=== PATIENT | female | born 1975 | race Caucasian/White ===

== ENCOUNTER 2020-05-29 16:44 | Inpatient (IN) | payer OTHER ==
[~2020-05-29] VITALS: Ht 162.5 cm; Wt 60.8 kg
[2020-05-29 16:59] VITALS: BP 125/84
[2020-05-29 17:44] LABS: BASO % 0.4 % (0.0-1.0); EOS # 0.1 10*3/uL (0.0-0.4); EOS % 1.8 % (1.0-4.0); HEMATOCRIT 46.8 % (37.0-47.0); LYMPH # 3.1 10*3/uL (1.3-4.4); LYMPH % 43.2 % (27.0-41.0); MEAN CELL VOLUME 96.9 fl (81.0-99.0); MEAN CORPUSCULAR HGB 31.5 pg (27.0-31.0); MEAN CORPUSCULAR HGB CONC 32.5 g/dl (33.0-37.0); MEAN PLATELET VOLUME 9.2 fl (9.6-12.3); MONO # 0.6 10*3/uL (0.1-1.0); NEUT # 3.4 10*3/uL (2.3-7.9); NEUT % 46.5 % (47.0-73.0); PLATELET COUNT AUTOMATED 289 10*3/uL (130-400); RED BLOOD COUNT 4.83 10*6/uL (4.10-5.10); RED CELL DISTRI WIDTH 13.9 % (0-14.5); WHITE BLOOD COUNT 7.2 10*3/uL (4.8-10.8)
[2020-05-29 17:55] LABS: ACT PARTIAL THROMBO TIME 27.9 SECONDS (20.0-32.1); INTERNATIONAL NORM RATIO 1.1 (2.0-3.5)
[2020-05-29 18:05] LABS: ALBUMIN 3.2 gm/dl (3.1-4.5); ALKALINE PHOSPHATASE 127 U/L (45-117); BUN 9 mg/dl (7-24); CHLORIDE 105 mmol/L (98-107); CREATININE 0.78 mg/dL (0.55-1.02); POTASSIUM 4.4 mmol/L (3.5-5.1); SGOT/AST 56 IU/L (3-35); SGPT/ALT 98 U/L (12-78); SODIUM 139 mmol/L (136-145); TOTAL PROTEIN 7.3 gm/dL (6.4-8.2)
[2020-05-29 18:14] LABS: BILIRUBIN Negative (Negative); BLOOD Negative (Negative); CLARITY Cloudy (Clear); COLOR Yellow (Yellow); GLUCOSE Negative (Negative); KETONE Trace (Negative); LEUKO ESTERASE 3+ (Negative); NITRITE Positive (Negative)
[2020-05-29 18:15] LABS: BETA-HCG, QUANT < 1.0 mIU/mL (1-3); ETHYL ALCOHOL < 3.0 mg/dl (<3)
[2020-05-29 18:28] LABS: BACTERIA 4+; MUCOUS TRACE; RBC 0-2 rbc/hpf (0-2); WBC TNTC wbc/hpf (0-5)
[2020-05-29 18:29] LABS: URINE AMPHETAMINES < 1000 (1000ng/ml); URINE BARBITURATES < 200 (200ng/ml); URINE BENZODIAZEPINES > 200 (200ng/ml); URINE CANNABINOIDS (THC) > 50 (50ng/ml); URINE COCAINE > 300 (300ng/ml); URINE METHADONE < 300 (300ng/ml); URINE OPIATES > 300 (300ng/ml)
[2020-05-29 18:30] LABS: URINE PHENCYCLIDINE < 25 (25ng/ml)
--- NOTE | 2020-05-29 20:10 | NUR ---
SPOKE WITH LAMBERTO ROACH FOR PATIENTS CORRECTION. GAVE INFORMATION ON PATIENT. PATIENT STATES THAT HE HAS BEEN STAYING WITH HIS FATHER FOR THE PAST COUPLE NIGHTS AND THAT WHEN HE STAYS SOMETIMES HE DOES NOT TAKE HIS MEDICATION. 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
--- NOTE | 2020-05-29 20:40 | NUR ---
PATIENT PROIVIDED WITH BOXED LUNCH AND GRAPE JUICE. CALL LIGHT WITHIN REACH
--- NOTE | 2020-05-29 22:01 | NUR ---
PATIENT RESTING IN BED WITH EYES CLOSED. CALL LIGHT WITHIN REACH.
--- NOTE | 2020-05-29 23:13 | NUR ---
PATIENT UP AND AMBULATED TO BATHROOM. DENIES THE NEED FOR ANYTHING AT THIS TIME. CALL LIGHT WITHIN REACH.
--- NOTE | 2020-05-30 01:08 | NUR ---
PT RESTING IN BED WITH EYES CLOSED, NO DISTRESS NOTED, RESP EASY NON LABORED, RN WILL CONTINUE TO MONITOR
--- NOTE | 2020-05-30 01:51 | NUR ---
PT REQUESTING NICOTINE INHALER.RESIDENT NOTIFIED OF PT REQUEST.
--- NOTE | 2020-05-30 02:30 | NUR ---
PT AWAKE AND ALERT EATING BOXED LUNCH, WATER/JUICE PROVIDED, NO DISTRESS NOTED, RN WILL CONTINUE TO MONITOR
--- NOTE | 2020-05-30 03:10 | NUR ---
PT RESTING IN BED WITH EYES CLOSED, RESP EASY NON LABORED, NO DISTRESS NOTED, RN WILL CONTINUE TO MONITOR
--- NOTE | 2020-05-30 05:08 | NUR ---
PT RESTING IN BED WITH EYES CLOSED, NO ACUTE DISTRESS NOTED, RN WILL CONTINUE TO MONITOR
--- NOTE | 2020-05-30 08:30 | NUR ---
BREAKFAST TRAY AT BEDSIDE AT THIS TIME.
[2020-05-30 08:57] VITALS: BP 130/80
--- NOTE | 2020-05-30 10:00 | NUR ---
MSADMTime: N A 44 year old FEMALE admitted to 5E under services of SACHIN DAILEY DO. Pt. arrived via bed from ER. Chief complaint: OPIATE ABUSE. ALEJANDRO RIZZO
[2020-05-30 10:05] VITALS: BP 118/75
--- NOTE | 2020-05-30 10:37 | NUR ---
PATIENT MEETS [facility]. [facility] STAFF WILL FOLLOW UP WITH PATIENT CONCERNNG HER AFTERCARE PLAN. PARUL HERNANDEZ B.A. LABOR DELIVERY RN
--- NOTE | 2020-05-30 11:58 | NUR ---
[facility] STAFF IN TO SEE PATIENT. PATIENT REPORTS THAT SHE ATTENDS [facility] IN [place] FOR OUTPATIENT TREATMENT. PATIENT REPORTS THAT SHE ALREADY HAS AN APPOINTMENT SET FOR HER POST DISCHARGE. PATIENT REPORTS THAT SHE HAS TRANSPORTATION HOME. PARUL HERNANDEZ B.A. COMMUNITY INTEGRATION SPECIALIST
[2020-05-30 12:00] VITALS: BP 121/76
[2020-05-30 16:00] VITALS: BP 121/76
--- NOTE | 2020-05-30 18:04 | NUR ---
PT LEFT WITHOUT SIGNING DISCHARGE PAPER WORK.
== END 2020-05-30 18:04 | disposition other institution (70) | DRG 770 ==
LOC: ED 16:44 → 5E 17:38 → EDHOLD 17:38 → 5E 05-30 09:34
PROVIDERS: Emergency Medicine; ADMIT Family Medicine; ATTEND Family Medicine
DX: F11.23 Opioid dependence with withdrawal (principal); R74.01 Elevation of levels of liver transaminase levels; F17.210 Nicotine dependence, cigarettes, uncomplicated; E44.0 Moderate protein-calorie malnutrition; F41.9 Anxiety disorder, unspecified; F13.10 Sedative, hypnotic or anxiolytic abuse, uncomplicated; F12.10 Cannabis abuse, uncomplicated; F14.10 Cocaine abuse, uncomplicated; F32.9 Major depressive disorder, single episode, unspecified; N39.0 Urinary tract infection, site not specified; Z71.6 Tobacco abuse counseling; Z82.49 Family history of ischemic heart disease and other diseases of the circulatory system; Z90.49 Acquired absence of other specified parts of digestive tract; Z88.0 Allergy status to penicillin